=== PATIENT | female | born 1935 | race Caucasian/White ===

== ENCOUNTER → 2021-07-06 | Outpatient (CLI) | payer MEDICARE, OTHER ==
--- NOTE | 2021-07-06 15:41 | RAD ---
EXAM: Dual energy x-ray absorptiometry (DEXA). HISTORY: SCREENING FOR OSTEOPOROSIS, BILATERAL HIP SURGERIES. COMPARISON: None. TECHNIQUE: Dual energy x-ray absorptiometry of the lumbar spine and right forearm was performed. Sohan culation of bone mineral density based on standard deviations above or below the expected young adult normal value (T-score) was completed. FINDINGS: LUMBAR SPINE: The AVG BMD OF the L1-L4 region = 1.098 gm/cm2, T-score = -0.7, Z-score = 1.1. Findings are consistent with normal BMD. 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 This can artificially elevate the ca lculation of bone density. Right forearm: The BMD of the right radius 33% = 0.264 gm/cm2, T-score = -6.3, Z-score = -3.0. The Findings are consistent with osteoporosis. IMPRESSION: 1. 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 This can artificially elevate th e calculation of bone density. 2. Within these constraints, normal bone mineral density of the lumbar spine and osteoporosis of the right forearm. Electronically signed by: Rogelio Schreiber MD (07/06/2021 3:38 PM) [id number]
== END ==
LOC: DXRAD 10:15
PROVIDERS: ATTEND Family Medicine
DX: M81.0 Age-related osteoporosis without current pathological fracture (principal); M47.816 Spondylosis without myelopathy or radiculopathy, lumbar region
CPT/HCPCS: 77080; 77081